=== PATIENT | male | born 1990 | race Caucasian/White ===

== ENCOUNTER 2016-08-13 00:14 | Emergency (ER) | payer OTHER ==
[~2016-08-13] VITALS: Ht 182.8 cm; Wt 102.1 kg
[2016-08-13 00:14] VITALS: BP 160/78
[~2016-08-13 00:14] MED LIST: AMOXICILLIN500 MG PO; BIAXIN500 MG PO; CLARITIN10 MG PO; LOMOTIL 0.025 M1 TA1 PO; LOTRISONE 0.05%1 CRE TP; MEDROL DOSEPAK4 MG PO; PROVENTIL0.09 MG/AC IH; ZITHROMAX Z PA250 MG PO; ZOFRAN ODT4 MG SL
== END 2016-08-13 03:05 | disposition home or self-care (01) ==
LOC: ED 00:14
DX: F41.0 Panic disorder [episodic paroxysmal anxiety] (principal)

== ENCOUNTER 2023-11-17 11:18 | Emergency (ER) | payer SELFPAY ==
[~2023-11-17] VITALS: Ht 182.8 cm; Wt 108.9 kg
[2023-11-17 11:48] VITALS: BP 133/74
[2023-11-17 11:58] LABS: BASO # 0.1 10*3/uL (0.0-0.1); BASO % 0.6 % (0.0-1.0); EOS # 0.2 10*3/uL (0.0-0.4); HEMATOCRIT 43.1 % (42.0-52.0); LYMPH # 2.5 10*3/uL (1.3-4.4); LYMPH % 31.6 % (27.0-41.0); MEAN CELL VOLUME 79.7 fl (80.0-94.0); MEAN CORPUSCULAR HGB 27.5 pg (27.0-31.0); MEAN CORPUSCULAR HGB CONC 34.6 g/dl (33.0-37.0); MEAN PLATELET VOLUME 9.2 fl (9.6-12.3); MONO # 0.6 10*3/uL (0.1-1.0); MONO % 7.1 % (3.0-9.0); NEUT # 4.6 10*3/uL (2.3-7.9); NEUT % 58.6 % (47.0-73.0); PLATELET COUNT AUTOMATED 219 10*3/uL (130-400); RED BLOOD COUNT 5.41 10*6/uL (4.50-5.90); RED CELL DISTRI WIDTH 12.7 % (0-14.5); WHITE BLOOD COUNT 7.9 10*3/uL (4.8-10.8)
[2023-11-17 12:11] LABS: ACT PARTIAL THROMBO TIME 27.5 SECONDS (20.0-32.1)
[2023-11-17 12:18] LABS: BUN 11 mg/dl (9-23); CHLORIDE 106 mmol/L (98-107); POTASSIUM 3.4 mmol/L (3.4-5.1)
== END 2023-11-17 14:25 | disposition home or self-care (01) ==
LOC: ED 11:18
PROVIDERS: Internal Medicine
DX: R07.89 Other chest pain (principal); F14.10 Cocaine abuse, uncomplicated; M79.602 Pain in left arm

== ENCOUNTER 2024-01-20 07:04 | Inpatient (IN) | payer SELFPAY ==
[~2024-01-20] VITALS: Ht 185.4 cm; Wt 99.9 kg
[2024-01-20 07:11] VITALS: BP 153/88
[2024-01-20 07:47] LABS: BILIRUBIN Negative (Negative); BLOOD Negative (Negative); CLARITY Clear (Clear); COLOR Yellow (Yellow); GLUCOSE Negative (Negative); KETONE Negative (Negative); LEUKO ESTERASE Negative (Negative); NITRITE Negative (Negative); SPECIFIC GRAVITY <= 1.005 (1.001-1.030); UROBILINOGEN 0.2 E.U./dl (0.0-1.0)
[2024-01-20 07:49] LABS: BASO % 0.5 % (0.0-1.0); EOS % 0.5 % (1.0-4.0); HEMATOCRIT 44.6 % (42.0-52.0); LYMPH # 1.7 10*3/uL (1.3-4.4); LYMPH % 30.6 % (27.0-41.0); MEAN CELL VOLUME 81.4 fl (80.0-94.0); MEAN CORPUSCULAR HGB 27.6 pg (27.0-31.0); MEAN CORPUSCULAR HGB CONC 33.9 g/dl (33.0-37.0); MEAN PLATELET VOLUME 9.4 fl (9.6-12.3); MONO # 0.4 10*3/uL (0.1-1.0); NEUT # 3.4 10*3/uL (2.3-7.9); NEUT % 61.2 % (47.0-73.0); PLATELET COUNT AUTOMATED 203 10*3/uL (130-400); RED BLOOD COUNT 5.48 10*6/uL (4.50-5.90); RED CELL DISTRI WIDTH 12.9 % (0-14.5); WHITE BLOOD COUNT 5.6 10*3/uL (4.8-10.8)
[2024-01-20 07:57] LABS: URINE AMPHETAMINES Negative (1000ng/ml); URINE BARBITURATES Negative (200ng/ml); URINE BENZODIAZEPINES Positive (200ng/ml); URINE CANNABINOIDS (THC) Negative (50ng/ml); URINE COCAINE Positive (300ng/ml); URINE METHADONE Negative (300ng/ml); URINE OPIATES Negative (300ng/ml); URINE PHENCYCLIDINE Negative (25ng/ml)
[2024-01-20 08:01] LABS: EPITHELIAL CELLS 0-2; RBC 0-2 rbc/hpf (0-2); WBC 0-2 wbc/hpf (0-5)
[2024-01-20 08:10] LABS: BUN 8 mg/dl (9-23); CHLORIDE 104 mmol/L (98-107); POTASSIUM 3.6 mmol/L (3.4-5.1)
[2024-01-20 08:15] LABS: ETHYL ALCOHOL < 3.0 mg/dl (<3)
[2024-01-20] MEDS ORDERED: ASPIRIN, CHEWABLE 81 MG TAB PO ONE (08:25)
[2024-01-20] MEDS ORDERED: Ondansetron Hydrochloride 4 MG/2 ML VIAL IV PRN (09:35)
[2024-01-20] MEDS ORDERED: ACETAMINOPHEN 325 MG TAB PO PRN (09:35)
[2024-01-20] MEDS ORDERED: IBUPROFEN 600 MG TAB PO PRN (09:40)
[2024-01-20] MEDS ORDERED: Nicotine 21 MG PATCH T PRN (09:40)
[2024-01-20] MEDS ORDERED: MULTIVITAMIN 1 TAB TAB PO SCH (10:00)
[2024-01-20] MEDS ORDERED: FOLIC ACID 1 MG TAB PO SCH (10:00)
[2024-01-20] MEDS ORDERED: Enoxaparin Sodium 40 MG/0.4 ML SYR SC SCH (10:00)
[2024-01-20] MEDS ORDERED: Thiamine 100 MG TAB PO SCH (10:00)
[2024-01-20] MEDS ORDERED: LORazepam 1 MG TAB PO SCH (12:00)
[2024-01-20 18:00] VITALS: BP 114/67
[2024-01-21] VITALS: BP 98/78
[2024-01-21 06:06] LABS: BASO % 0.5 % (0.0-1.0); EOS # 0.2 10*3/uL (0.0-0.4); EOS % 3.8 % (1.0-4.0); HEMATOCRIT 45.9 % (42.0-52.0); LYMPH # 2.7 10*3/uL (1.3-4.4); LYMPH % 45.8 % (27.0-41.0); MEAN CELL VOLUME 81.4 fl (80.0-94.0); MEAN CORPUSCULAR HGB 27.8 pg (27.0-31.0); MEAN CORPUSCULAR HGB CONC 34.2 g/dl (33.0-37.0); MEAN PLATELET VOLUME 9.8 fl (9.6-12.3); MONO # 0.5 10*3/uL (0.1-1.0); MONO % 7.9 % (3.0-9.0); NEUT # 2.5 10*3/uL (2.3-7.9); NEUT % 41.8 % (47.0-73.0); PLATELET COUNT AUTOMATED 191 10*3/uL (130-400); RED BLOOD COUNT 5.64 10*6/uL (4.50-5.90); RED CELL DISTRI WIDTH 13.4 % (0-14.5)
[2024-01-21 06:37] LABS: ALKALINE PHOSPHATASE 53 U/L (46-116); BUN 13 mg/dl (9-23); CHLORIDE 108 mmol/L (98-107); CHOLESTEROL 130 mg/dL (<200); FREE T4 1.07 ng/dl (0.89-1.76); LDL CHOLESTEROL 80 mg/dL (9-159); POTASSIUM 3.9 mmol/L (3.4-5.1); SGPT/ALT 20 U/L (5-49); TOTAL PROTEIN 6.6 gm/dL (6.0-8.0); TRIGLYCERIDES 79 mg/dl (<150)
[2024-01-21 07:45] LABS: VITAMIN D, 25-HYDROXY 34.5 ng/mL (30-100)
[2024-01-21 08:00] VITALS: BP 109/84
[2024-01-21] MEDS ORDERED: LORazepam 1 MG TAB PO SCH (14:00)
[2024-01-22] MEDS ORDERED: LORazepam 1 MG TAB PO PRN
== END 2024-01-21 12:36 | disposition home or self-care (01) | DRG 313 ==
LOC: ED 07:04 → EDHOLD 08:27 → 4E 23:34
PROVIDERS: Emergency Medicine; Registered Nurse; ADMIT Family Medicine; ATTEND Family Medicine
DX: R07.89 Other chest pain (principal); F41.9 Anxiety disorder, unspecified; F14.10 Cocaine abuse, uncomplicated; F19.10 Other psychoactive substance abuse, uncomplicated; Z82.49 Family history of ischemic heart disease and other diseases of the circulatory system; Z72.0 Tobacco use

== ENCOUNTER 2024-06-15 22:44 | Inpatient (IN) | payer SELFPAY ==
[~2024-06-15] VITALS: Ht 182.8 cm; Wt 95.0 kg
[2024-06-15 22:44] VITALS: BP 132/72
[2024-06-15] MEDS ORDERED: IOHEXOL 300 MG/ML 100 ML VIAL IV ONE (23:15)
[2024-06-15 23:28] LABS: HEMATOCRIT 43.8 % (42.0-52.0); MANUAL DIFF REFLEX YES; MEAN CELL VOLUME 81.3 fl (80.0-94.0); MEAN CORPUSCULAR HGB 27.1 pg (27.0-31.0); MEAN CORPUSCULAR HGB CONC 33.3 g/dl (33.0-37.0); MEAN PLATELET VOLUME 9.1 fl (9.6-12.3); PLATELET COUNT AUTOMATED 228 10*3/uL (130-400); RED BLOOD COUNT 5.39 10*6/uL (4.50-5.90); RED CELL DISTRI WIDTH 12.8 % (0-14.5); WHITE BLOOD COUNT 18.7 10*3/uL (4.8-10.8)
[2024-06-15] MEDS ORDERED: IOHEXOL 300 MG/ML 100 ML VIAL ONE (23:35)
[2024-06-15 23:46] LABS: BUN 10 mg/dl (9-23); CHLORIDE 101 mmol/L (98-107); POTASSIUM 3.6 mmol/L (3.4-5.1)
[2024-06-15 23:55] LABS: ATYPICAL LYMPHS 2 % (0-0); PLATELET SUFFICIENCY NORMAL (NORMAL); TOTAL CELLS COUNTED 100 #CELLS
[2024-06-16] VITALS (8 sets, daily range): BP systolic 110–143; BP diastolic 49–76
[2024-06-16] MEDS ORDERED: SODIUM CHLORIDE 0.9% 1,000 ML IV SCH (00:15)
[2024-06-16] MEDS ORDERED: Vancomycin Hydrochloride 250 ML IV ONE (00:20)
[2024-06-16] MEDS ORDERED: Piperacillin Sodium/Tazobact 50 ML IV ONE ×2 (00:20→07:05)
[2024-06-16] MEDS ORDERED: BISACODYL 10 MG SUPP R PRN (01:35)
[2024-06-16] MEDS ORDERED: MORPHINE Sulfate 2 MG/ML SYR IV PRN (01:35)
[2024-06-16] MEDS ORDERED: ACETAMINOPHEN 325 MG TAB PO PRN (01:35)
[2024-06-16] MEDS ORDERED: Magnesium Hydroxide 30 ML UDC PO PRN (01:35)
[2024-06-16] MEDS ORDERED: ACETAMINOPHEN 650 MG SUPP R PRN (01:35)
[2024-06-16] MEDS ORDERED: Acetaminophen/Hydrocodone 5 MG/325 MG TABLET PO PRN (01:35)
[2024-06-16] MEDS ORDERED: BISACODYL 5 MG TAB PO PRN (01:35)
[2024-06-16] MEDS ORDERED: TEMAZEPAM 15 MG CAP PO PRN (01:35)
[2024-06-16] MEDS ORDERED: Ondansetron Hydrochloride 4 MG/2 ML VIAL IV PRN (01:35)
[2024-06-16 04:09] LABS: BASO # 0.1 10*3/uL (0.0-0.1); BASO % 0.3 % (0.0-1.0); EOS # 0.2 10*3/uL (0.0-0.4); EOS % 1.1 % (1.0-4.0); HEMATOCRIT 40.6 % (42.0-52.0); MEAN CELL VOLUME 81.9 fl (80.0-94.0); MEAN PLATELET VOLUME 9.3 fl (9.6-12.3); MONO # 1.3 10*3/uL (0.1-1.0); MONO % 8.8 % (3.0-9.0); NEUT # 11.2 10*3/uL (2.3-7.9); NEUT % 74.9 % (47.0-73.0); PLATELET COUNT AUTOMATED 191 10*3/uL (130-400); RED BLOOD COUNT 4.96 10*6/uL (4.50-5.90); RED CELL DISTRI WIDTH 13.1 % (0-14.5)
[2024-06-16 04:24] LABS: ACT PARTIAL THROMBO TIME 28.8 SECONDS (20.0-32.1)
[2024-06-16 04:35] LABS: ALKALINE PHOSPHATASE 55 U/L (46-116); BUN 9 mg/dl (9-23); CHLORIDE 106 mmol/L (98-107); CHOLESTEROL 82 mg/dL (<200); FREE T4 0.91 ng/dl (0.89-1.76); LDL CHOLESTEROL 41 mg/dL (9-159); POTASSIUM 3.6 mmol/L (3.4-5.1); SGPT/ALT 10 U/L (5-49); TOTAL PROTEIN 6.4 gm/dL (6.0-8.0); TRIGLYCERIDES 67 mg/dl (<150)
[2024-06-16 06:33] LABS: VITAMIN D, 25-HYDROXY 17.4 ng/mL (30-100)
[2024-06-16] MEDS ORDERED: VANCOMYCIN/WATER FOR INJ (PEG) 250 ML IV SCH (10:00)
[2024-06-16] MEDS ORDERED: Piperacillin Sodium/Tazobact 50 ML IV SCH (12:00)
[2024-06-16] MEDS ORDERED: SODIUM CHLORIDE 0.9% 500 ML IV ONE (12:24)
[2024-06-16] MEDS ORDERED: Lidocaine Hydrochloride 30 ML VIAL ONE (12:36)
[2024-06-16] MEDS ORDERED: HYDROmorphONE Hydrochloride 0.5 MG/0.5 ML SYRINGE IV PRN (12:50)
[2024-06-16] MEDS ORDERED: Lidocaine Hydrochloride 5 ML VIAL IV ONE (13:34)
[2024-06-16] MEDS ORDERED: PROPOFOL 200 MG/20 ML VIAL IV ONE (13:34)
[2024-06-16] MEDS ORDERED: Ketamine Hydrochloride 500 MG/10 ML VIAL IV ONE (13:34)
[2024-06-16] MEDS ORDERED: Midazolam Hydrochloride 2 MG/2 ML VIAL IV ONE (13:34)
[2024-06-17] VITALS: BP 140/75
[2024-06-17 06:40] LABS: BASO % 0.4 % (0.0-1.0); EOS # 0.3 10*3/uL (0.0-0.4); EOS % 2.9 % (1.0-4.0); HEMATOCRIT 41.6 % (42.0-52.0); MEAN CELL VOLUME 83.7 fl (80.0-94.0); MEAN CORPUSCULAR HGB 26.6 pg (27.0-31.0); MEAN CORPUSCULAR HGB CONC 31.7 g/dl (33.0-37.0); MEAN PLATELET VOLUME 9.9 fl (9.6-12.3); MONO # 0.9 10*3/uL (0.1-1.0); MONO % 8.5 % (3.0-9.0); NEUT # 7.2 10*3/uL (2.3-7.9); PLATELET COUNT AUTOMATED 225 10*3/uL (130-400); RED BLOOD COUNT 4.97 10*6/uL (4.50-5.90); RED CELL DISTRI WIDTH 12.9 % (0-14.5); WHITE BLOOD COUNT 11.1 10*3/uL (4.8-10.8)
[2024-06-17 07:47] LABS: BUN 7 mg/dl (9-23); CHLORIDE 106 mmol/L (98-107)
[2024-06-17 08:00] VITALS: BP 146/66
[2024-06-17] MEDS ORDERED: Cholecalciferol 2,000 UNIT TABLET (50 MCG) PO SCH (10:00)
[2024-06-17 12:00] VITALS: BP 134/79
[2024-06-17 16:00] VITALS: BP 136/74
[2024-06-17] MEDS ORDERED: VANCOMYCIN/WATER FOR INJ (PEG) 300 ML IV SCH (18:00)
[2024-06-17 20:00] VITALS: BP 131/78
[2024-06-18] VITALS: BP 146/80
[2024-06-18 06:09] LABS: BASO # 0.1 10*3/uL (0.0-0.1); BASO % 0.7 % (0.0-1.0); EOS # 0.5 10*3/uL (0.0-0.4); EOS % 5.3 % (1.0-4.0); HEMATOCRIT 42.5 % (42.0-52.0); MEAN CELL VOLUME 82.4 fl (80.0-94.0); MEAN CORPUSCULAR HGB 26.4 pg (27.0-31.0); MEAN PLATELET VOLUME 9.5 fl (9.6-12.3); MONO # 0.6 10*3/uL (0.1-1.0); MONO % 7.1 % (3.0-9.0); NEUT # 4.5 10*3/uL (2.3-7.9); NEUT % 52.6 % (47.0-73.0); PLATELET COUNT AUTOMATED 274 10*3/uL (130-400); RED BLOOD COUNT 5.16 10*6/uL (4.50-5.90); RED CELL DISTRI WIDTH 12.9 % (0-14.5); WHITE BLOOD COUNT 8.5 10*3/uL (4.8-10.8)
[2024-06-18 06:28] LABS: BUN 9 mg/dl (9-23); CHLORIDE 105 mmol/L (98-107)
[2024-06-18 08:00] VITALS: BP 133/56
[2024-06-18 12:00] VITALS: BP 132/60
[2024-06-18 16:00] VITALS: BP 132/77
[2024-06-18 20:00] VITALS: BP 134/73
[2024-06-19] VITALS: BP 144/82
[2024-06-19 05:37] LABS: BUN 11 mg/dl (9-23); CHLORIDE 103 mmol/L (98-107); POTASSIUM 3.8 mmol/L (3.4-5.1)
[2024-06-19 06:29] LABS: BASO # 0.1 10*3/uL (0.0-0.1); BASO % 0.6 % (0.0-1.0); EOS # 0.5 10*3/uL (0.0-0.4); EOS % 5.8 % (1.0-4.0); HEMATOCRIT 44.8 % (42.0-52.0); MEAN CELL VOLUME 83.4 fl (80.0-94.0); MEAN CORPUSCULAR HGB 26.4 pg (27.0-31.0); MEAN CORPUSCULAR HGB CONC 31.7 g/dl (33.0-37.0); MEAN PLATELET VOLUME 9.5 fl (9.6-12.3); MONO # 0.6 10*3/uL (0.1-1.0); MONO % 7.1 % (3.0-9.0); NEUT # 3.8 10*3/uL (2.3-7.9); NEUT % 47.5 % (47.0-73.0); PLATELET COUNT AUTOMATED 333 10*3/uL (130-400); RED BLOOD COUNT 5.37 10*6/uL (4.50-5.90); RED CELL DISTRI WIDTH 12.7 % (0-14.5)
[2024-06-19 08:00] VITALS: BP 130/60
[2024-06-19] MEDS ORDERED: VITAMIN D350 MCG PO (11:21)
[2024-06-19] MEDS ORDERED: Vibra-Tab100 MG PO (11:21)
[2024-06-19 12:00] VITALS: BP 135/65
[2024-06-19 16:00] VITALS: BP 140/70
== END 2024-06-19 20:41 | disposition home or self-care (01) | DRG 872 ==
LOC: ED 22:44 → EDHOLD 06-16 01:16 → 4E 06-16 01:16
PROVIDERS: Internal Medicine; Student in an Organized Health Care Education/Training Program; ADMIT Internal Medicine; ATTEND Internal Medicine
PROC: 0Y9D00Z Drainage of Left Upper Leg with Drainage Device, Open Approach (ICD-10-PCS; principal; 2024-06-16)
DX: A41.9 Sepsis, unspecified organism (principal); L03.116 Cellulitis of left lower limb; L02.416 Cutaneous abscess of left lower limb; E87.1 Hypo-osmolality and hyponatremia; E44.1 Mild protein-calorie malnutrition; L02.91 Cutaneous abscess, unspecified; E55.9 Vitamin D deficiency, unspecified; R73.9 Hyperglycemia, unspecified; F41.1 Generalized anxiety disorder; F32.A Depression, unspecified; B95.62 Methicillin resistant Staphylococcus aureus infection as the cause of diseases classified elsewhere; Z82.49 Family history of ischemic heart disease and other diseases of the circulatory system; Z68.28 Body mass index [BMI] 28.0-28.9, adult

== ENCOUNTER 2024-11-27 11:02 | Emergency (ER) | payer OTHER ==
[~2024-11-27] VITALS: Ht 182.8 cm; Wt 102.1 kg
[~2024-11-27 11:02] MED LIST changes: +VITAMIN D350 MCG PO; +Vibra-Tab100 MG PO
[2024-11-27 11:09] VITALS: BP 163/92
[2024-11-27] MEDS ORDERED: SEPTDS PO (11:22)
[2024-11-27] MEDS ORDERED: CEPHALEXIN500 M1 PO (11:22)
== END 2024-11-27 11:34 | disposition home or self-care (01) ==
LOC: ED 11:02
DX: L02.416 Cutaneous abscess of left lower limb (principal); F17.290 Nicotine dependence, other tobacco product, uncomplicated